=== PATIENT | male | born 1955 | race Two or more races ===

== ENCOUNTER → 2020-02-03 | Day surgery (SDC) | payer OTHER ==
[~2020-02-03] VITALS: Ht 180.3 cm; Wt 83.9 kg
[2020-02-03 07:21] VITALS: BP 143/85
[2020-02-03 09:50] VITALS: BP 132/77
== END | disposition home or self-care (01) ==
LOC: DS 06:41 → OR 09:00 → DS 09:00 → OR 09:30
DX: K21.0 Gastro-esophageal reflux disease with esophagitis (principal); K31.84 Gastroparesis; K44.9 Diaphragmatic hernia without obstruction or gangrene; K31.9 Disease of stomach and duodenum, unspecified; E11.43 Type 2 diabetes mellitus with diabetic autonomic (poly)neuropathy; I10 Essential (primary) hypertension; E78.5 Hyperlipidemia, unspecified; Z88.0 Allergy status to penicillin; Z79.82 Long term (current) use of aspirin; Z79.84 Long term (current) use of oral hypoglycemic drugs; Z79.899 Other long term (current) drug therapy; J45.909 Unspecified asthma, uncomplicated; Z98.890 Other specified postprocedural states
CPT/HCPCS: 43235; 88305; 88312; 88313; J1200; J1610; J2250; J2310; J3010; J3490